=== PATIENT | male | born 1990 | race Caucasian/White ===

== ENCOUNTER 2023-12-23 18:34 | Emergency (ER) | payer OTHER ==
[~2023-12-23] VITALS: Ht 188 cm; Wt 108.9 kg
[2023-12-23 18:52] VITALS: BP 129/83; PULSE 88; RESP 18; TEMP 98; O2SAT 98
[2023-12-23 19:00] VITALS: TEMP 98
[2023-12-23] MEDS ORDERED: ceFAZolin 1,000 MG VIAL ONE (20:00)
[2023-12-23] MEDS: MORPHINE SULFATE 4 MG/ML SYR IVP ONE (20:26)
[2023-12-23] MEDS: ONDANSETRON 4 MG/2 ML VIAL IVP ONE (20:27)
[2023-12-23] MEDS ORDERED: CEPH-588 PO (21:11)
[2023-12-23] MEDS ORDERED: HYDR-5071 PO (21:11)
[2023-12-23] MEDS ORDERED: IBUP-2218 PO (21:11)
[2023-12-23 22:00] VITALS: BP 154/98; PULSE 76; RESP 14; O2SAT 95
== END 2023-12-23 22:10 | disposition home or self-care (01) ==
LOC: MED 18:34
DX: S68.022A Partial traumatic metacarpophalangeal amputation of left thumb, initial encounter (principal); Z79.899 Other long term (current) drug therapy; X58.XXXA Exposure to other specified factors, initial encounter; Y92.89 Other specified places as the place of occurrence of the external cause; Y93.89 Activity, other specified; Y99.8 Other external cause status
CPT/HCPCS: 13131; 73140; 90471; 90715; 96365; 96375; 99285; J0690; J2270; J2405; 12001; 99284

== ENCOUNTER 2023-12-25 17:23 | Emergency (ER) | payer OTHER ==
[~2023-12-25] VITALS: Ht 188 cm; Wt 111.1 kg
[~2023-12-25 17:23] MED LIST: CEPH-588 PO; HYDR-5071 PO; IBUP-2218 PO
[2023-12-25 17:25] VITALS: BP 112/77; PULSE 100; RESP 18; TEMP 98; O2SAT 94
[2023-12-25] MEDS ORDERED: BACITRACIN OINT 500 UNITS/GM PKT TP ONE (18:04)
== END 2023-12-25 18:15 | disposition home or self-care (01) ==
LOC: MED 17:23
DX: S68.022D Partial traumatic metacarpophalangeal amputation of left thumb, subsequent encounter (principal); Z48.01 Encounter for change or removal of surgical wound dressing; J45.909 Unspecified asthma, uncomplicated; Z79.899 Other long term (current) drug therapy; X58.XXXD Exposure to other specified factors, subsequent encounter
CPT/HCPCS: 99282